=== PATIENT | male | born 1980 | race African-American/Black ===

== ENCOUNTER 2017-06-16 16:37 | Emergency (ER) | payer OTHER ==
[~2017-06-16] VITALS: Ht 185.4 cm; Wt 104.3 kg
[~2017-06-16 16:37] MED LIST: CYCLOBENZAPRINE10 MG ORAL; IBUPROFEN800 MG ORAL
--- NOTE | 2017-06-16 17:02 | Emergency Room Report ---
History of Present Illness General Chief Complaint: Back Injury Source: Patient Present Illness HPI 36 yo male patient presents to ER complaining of back pain since earlier today. 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 Denies taking medication for relief of symptoms. Reports no hx of chronic back pain. Denies karlene or bladder problems. Denies hx of surgery. Denies radiation of symptoms. Denies abdominal pain. Denies trauma. Denies hx of cancer or IVDA. Denies hx of kidney stones. Denies fever, chest pain, SOB. Allergies: Coded Allergies: No Known Allergies (Unverified , 08/12/15) Patient History Past Medical History: see triage record Reviewed Nursing Documentation: PMH: Agreed, PSxH: Agreed Nursing Documentation-PMH Past Medical History: No Stated History Review of Systems All Other Systems: negative except mentioned in HPI Physical Exam Vital Signs Date Time Temp Pulse Resp B/P (MAP) Pulse Ox O2 Delivery O2 Flow Rate FiO2 06/16/17 16:47 97.8 87 18 111/75 98 Room Air 97.9 Sp02 EP Interpretation: reviewed, normal General Appearance: well appearing, no apparent distress, alert, GCS 15, non- toxic Head: normocephalic, atraumatic Eyes: bilateral eye normal inspection, bilateral eye PERRL ENT: hearing grossly normal, normal pharynx, no angioedema, normal voice, uvula midline, moist mucus membranes Neck: full range of motion, no bony tend Respiratory: lungs clear, normal breath sounds, no rhonchi, no respiratory distress, no accessory muscle use, no wheezing, speaking full sentences Cardiovascular #1: regular rate, rhythm, no edema Gastrointestinal: non tender, soft, no mass, non-distended, no guarding, no rebound Genitourinary: no CVA tenderness Musculoskeletal: back normal, digits/nails normal, gait/station normal, normal range of motion, non-tender, other - no bony stepoff, no bony tenderness of spine, tender Neurologic: alert, oriented x3, responsive, motor strength/tone normal, sensory intact Psychiatric: mood/affect normal Skin: no rash Lymphatic: no adenopathy Medical Decision Making PA Attestation Dr. Hale is my supervising Physician whom patient management has been discussed with. Diagnostic Impression: Primary Impression: Low back pain ER Course Pt presents to ED c/o back pain. DDX considered but are not limited to sprain, strain, cauda equine, epidural abscess, spinal cord compression. Likely musculoskeletal in nature. Low suspicion for cauda equina, no bowel or bladder incontinence or retention. No fever, nontoxic appearing, no radiation of pain, low suspicion for epidural mass. Does not require imaging at this time. VITAL SIGNS are WNL, patient is afebrile. ER COURSE: TTP over right side of lumbar spine, pain with lateral side bend to the right, pain with back twist to right. Patient reports normal ROM for him. Declined medication in ER acutely, will fill prescriptions and take at home. Informed patient likely musculoskeletal in nature, followup with PCP for further treatment and referral as needed. Need clearance for work from them. Patient reports he has a clinic he can report to for work related injuries, will go tomorrow because he has the day off. Instruct patient to not lift with back, lift with legs. Declined medication at this time, will fill prescription for medication. DISCHARGE: Patient declined prescription for Tylenol, does not want pain pills. -Rx provided for Lidocaine patch -Rx provided for Robaxin. SE drowsiness, do not take while drinking, driving, or operating heavy machinery. At this time pt. is stable for d/c to home. At this time patient is resting comfortably, in no acute distress, nontoxic appearing, smiling and talking without difficulty. Will provide printed patient care instructions, and any necessary prescriptions. Patient instructed to follow with primary care provider for further treatment and referral as needed. Care plan and follow up instructions have been discussed with the patient prior to discharge. Patient reports understanding and agreement to treatment plan. Patient questions asked and answered. ER precautions given, patient instructed to return to ER immediately for any new or worsening of symptoms. Last Vital Signs Date Time Temp Pulse Resp B/P (MAP) Pulse Ox O2 Delivery O2 Flow Rate FiO2 06/16/17 16:47 97.8 87 18 111/75 98 Room Air 97.9 Disposition: HOME, SELF-CARE Condition: Stable Scripts Lidocaine (Lidocaine) 1 Each Adh..patch 700 MG TP DAILY for 7 Days, #7 PATCH Prov: Ramana Wheeler 06/16/17 Methocarbamol* (ROBAXIN*) 500 Mg Tablet 500 MG PO TID, #21 TAB 0 Refills Prov: Ramana Wheeler 06/16/17 Patient Instructions: Back Pain, Adult, Back Injury Prevention Additional Instructions: Followup with primary care provider in 3 -5 days. Discuss referral to ortho as needed. Muscle relaxant causes drowsiness. Take medications as directed. Patient questions asked and answered. ER precautions given, patient instructed to return to ER immediately for any new or worsening of symptoms. Ramana Wheeler Jun 16, 2017 17:02
[2017-06-16] MEDS ORDERED: LIDOCAINE700 M1 TP (17:18)
[2017-06-16] MEDS ORDERED: ROBAXIN500 MG PO (17:18)
[2017-06-16 17:26] VITALS: BP 111/75
== END 2017-06-16 17:26 | disposition home or self-care (01) ==
LOC: EMR 17:21
DX: M54.5 Low back pain (principal)
CPT/HCPCS: 99284